=== PATIENT | male | born 1945 | race Caucasian/White ===

== ENCOUNTER 2024-12-11 07:26 | Day surgery (SDC) | payer OTHER ==
[~2024-12-11] VITALS: Ht 175.3 cm; Wt 95.9 kg
[~2024-12-11 07:26] MED LIST: Balanced Salt Epinephrine Irrigation Solution 500 mL IR SCH; CARV25 PO; Diazepam 5 MG Tab PO PRN; Diazepam 5 MG Tab PO SCH; HYDCHL25 PO; LISI20 PO; LORA.5 PO; Lidocaine HCl/Pf 1% 5 ML VIAL ONE; Lidocaine HCl/Pf 1% 5 ML VIAL XX SCH; Moxifloxacin HCL 0.5 MG/0.1 ML 0.4MLSYR LEFTEYE SCH; Ondansetron 4 MG SoluTab MM PRN; PHENYLEPHRINE\\TROPICAMIDE\\TETRACAINE OPHTHALMIC DILATING SOLN LEFTEYE PRN; POTCHL10ER PO; Povidone-Iodine 450 DROP/30 ML Solution LEFTEYE SCH; Povidone-Iodine 450 DROP/30 ML Solution ONE; Tetracaine HCl/Pf 0.5% Opth Soln 4 ml ONE; Triamcinolone Inj Susp 40 MG / ML 1ML Vial INJ SCH; Triamcinolone Inj Susp 40 MG / ML 1ML Vial ONE; WARF5 PO; ZOLP10 PO
[2024-12-11] MEDS ORDERED: Diazepam 10 MG Tab ONE (07:55)
[2024-12-11] MEDS ORDERED: ELIQUIS5 M2 PO (08:12)
[2024-12-11] MEDS ORDERED: BUPR75 PO (08:13)
[2024-12-11] MEDS ORDERED: SERT50 PO (08:13)
[2024-12-11] MEDS ORDERED: DIGOX125 MC2 PO (08:14)
[2024-12-11] MEDS ORDERED: ATOR20 PO (08:14)
[2024-12-11] MEDS ORDERED: Vitamin D1000 UNI1 (08:14)
[2024-12-11] MEDS ORDERED: AMLO5 PO (08:15)
--- NOTE | 2024-12-11 08:57 | NUR ---
12/11/24 0857 Lauren Garg PT STATES ANXIETY LEVEL IS 4/10 AT 0857.
[2024-12-11] MEDS ORDERED: Tetracaine HCl 0.5% Opth Soln 15 ml LEFTEYE ONE (08:58)
--- NOTE | 2024-12-11 09:04 | NUR ---
12/11/24 0904 Agustín Cardoso N 159/100 76 18 97 8L BLOW BY O2 AFIB, PRE EXISTING, DR CARDONA NOTIFIED. VSS. NO SIGNS OF DISCOMFORT OR DISTRESS.
[2024-12-11 09:38] VITALS: BP 148/102
== END 2024-12-11 09:35 | disposition home or self-care (01) ==
LOC: ORSCSDS 07:26
PROVIDERS: Ophthalmology
PROC: 08RK3JZ Replacement of Left Lens with Synthetic Substitute, Percutaneous Approach (ICD-10-PCS; principal; 2024-12-11 09:00)
DX: H25.812 Combined forms of age-related cataract, left eye (principal); Z96.1 Presence of intraocular lens; Z79.899 Other long term (current) drug therapy
CPT/HCPCS: A9270; J2003; J3301; V2632